=== PATIENT | male | born 1980 | race African-American/Black ===

== ENCOUNTER 2017-10-09 12:52 | Emergency (ER) | payer MEDICAID ==
[~2017-10-09] VITALS: Ht 188 cm; Wt 86.2 kg
[2017-10-09] MEDS ORDERED: ALBUTEROL SULF8.5 GM INH (13:02)
[2017-10-09] MEDS ORDERED: Methocarbamol 750mg tab ORAL ONE (14:00)
[2017-10-09] MEDS ORDERED: Ketorolac 60mg Inj IM ONE (14:00)
[2017-10-09] MEDS ORDERED: IBUPROFEN600 MG ORAL (14:03)
[2017-10-09] MEDS ORDERED: ROBAXIN-750750 MG PO (14:03)
[2017-10-09 14:25] VITALS: BP 125/75
--- NOTE | 2017-10-09 17:00 | Diagnostic Imaging Report ---
Indication: Chest pain Technique: One view of the chest Comparison: none Findings: Lungs and pleural spaces are clear. Heart size is upper limits normal. Impression: No acute process
--- NOTE | 2017-10-09 21:43 | Emergency Room Report ---
History of Present Illness General Chief Complaint: Chest Pain Source: Patient Present Illness HPI The patient is a 37-year-old male presenting for chest pain which began earlier today. He describes this as an 8/10 sharp sensation to the left chest and left mid back. He denies any injury to the area. Pain does not radiate. Worse with movement and touch. He denies any medical history. He denies history of smoking or family history of heart disease. He denies any other symptoms including N, V, SOB, abd pain, cough, numbness Allergies: Coded Allergies: No Known Allergies (Unverified , 10/09/17) Patient History Past Medical History: see triage record Pertinent Family History: none Reviewed Nursing Documentation: PMH: Agreed, PSxH: Agreed Nursing Documentation-PMH Hx Asthma: Yes Review of Systems All Other Systems: negative except mentioned in HPI Physical Exam Vital Signs Date Time Temp Pulse Resp B/P (MAP) Pulse Ox O2 Delivery O2 Flow Rate FiO2 10/09/17 12:58 98.4 83 16 125/81 97 Room Air 10/09/17 13:19 98 Sp02 EP Interpretation: reviewed, normal General Appearance: no apparent distress, alert, GCS 15, non-toxic Head: normocephalic, atraumatic Eyes: bilateral eye normal inspection, bilateral eye PERRL ENT: hearing grossly normal, normal pharynx, no angioedema, normal voice Neck: full range of motion, supple/symm/no masses Respiratory: lungs clear, normal breath sounds, no wheezing, speaking full sentences, other - TTP over the L chest and L latissimus, chest symmetrical Cardiovascular #1: regular rate, rhythm, no edema Gastrointestinal: normal bowel sounds, non tender, soft, non-distended, no guarding, no rebound Musculoskeletal: normal inspection, gait/station normal, normal range of motion Neurologic: alert, oriented x3, responsive, motor strength/tone normal, sensory intact, speech normal Psychiatric: judgement/insight normal, memory normal, mood/affect normal, no suicidal/homicidal ideation Skin: normal color, no rash, warm/dry, well hydrated Medical Decision Making PA Attestation Dr. Ruelas is my supervising physician. Patient management was discussed with my supervising physician Diagnostic Impression: Primary Impression: Chest pain Qualified Codes: R07.9 - Chest pain, unspecified ER Course The patient is a 37-year-old male presenting for chest pain which began earlier today. Differential diagnosis include but not limited to ACS, PE,muscle strain, pneumonia, gastritis Physical exam: Vitals are within normal limits. RRR. no mrg. Lungs clear to auscultation bilaterally There is tenderness to palpation over the left lateral chest and accompanying left back. No deformity. No respiratory distress Skin is warm and dry Chest x-ray and EKG both unremarkable The patient is given IM Toradol and Robaxin and is feeling better. He will be discharged home with the ER precautions EKG Diagnostic Results EP Interpretation: NSR. No acute findings Rate: normal - 61 Rhythm: NSR ST Segments: no acute changes ASA given to the pt in ED: No PA Scribe Text EKG was reviewed and read with my supervising physician. No acute ST segment changes are seen. Normal rate and rhythm. No acute changes. Chest X-Ray Diagnostic Results Chest X-Ray Diagnostic Results : Chest X-Ray Ordered: Yes # of Views/Limited/Complete: 1 View Indication: Chest Pain EP Interpretation: Yes PA Xray: Interpretation reviewed, by supervising MD, and agrees with findings. Interpretation: no consolidation, no effusion, no pneumothorax, no acute cardiopulmonary disease Impression: No acute disease Electronically Signed by: Evelio Colvin PA-C Last Vital Signs Date Time Temp Pulse Resp B/P (MAP) Pulse Ox O2 Delivery O2 Flow Rate FiO2 10/09/17 14:31 97.4 10/09/17 14:25 60 16 125/75 100 Room Air 10/09/17 13:19 98 Status: improved Disposition: HOME, SELF-CARE Condition: Improved Scripts Methocarbamol* (ROBAXIN-750*) 750 Mg Tablet 750 MG PO TID, #21 TAB 0 Refills Prov: TERCRISTALANEVELIO P.A. 10/09/17 Ibuprofen* (MOTRIN*) 600 Mg Tablet 600 MG ORAL Q8H Y for For Pain, #30 TAB 0 Refills Prov: TERCRISTALANEVELIO P.A. 10/09/17 Patient Instructions: Nonspecific Chest Pain Additional Instructions: I discussed my findings with the patient. All questions and concerns have been answered. Treatment and medication compliance have been addressed. I advised the patient that they need to follow up with PMD in 3-5 days. Return to ED if symptoms worsen, new symptoms arise, or if needed for any reason. Patient verbalized understanding of discharge instructions. EVELIO COLVIN Oct 09, 2017 21:43
--- NOTE | 2017-10-12 11:01 | Cardiology Report ---
APPROVED REPORT EKG Measurement Heart [id number] Normal sinus rhythm Moderate voltage criteria for LVH, may be normal variant Borderline ECG
== END 2017-10-09 14:25 | disposition home or self-care (01) ==
LOC: EMR 13:23
DX: R07.9 Chest pain, unspecified (principal); J45.909 Unspecified asthma, uncomplicated
CPT/HCPCS: 71010; 93005; 96372; 99284

== ENCOUNTER 2019-01-29 00:58 | Emergency (ER) | payer SELFPAY ==
[~2019-01-29] VITALS: Ht 188 cm; Wt 81.6 kg
[~2019-01-29 00:58] MED LIST: ALBUTEROL SULF8.5 GM INH; IBUPROFEN600 MG ORAL; ROBAXIN-750750 MG PO
[2019-01-29] MEDS ORDERED: NKM (01:12)
[2019-01-29 01:55] VITALS: BP 140/73
--- NOTE | 2019-01-29 01:55 | NUR ---
ED Nurse Note: pt walked in c/o headache x 5 hours. pt is complaining of 8/10 pain. pt stated he vomited earlier yesterday. ermd on bedside. pt able to give urine and blood drawn and was sent to lab. will continue to monitor.
[2019-01-29] MEDS ORDERED: Ketorolac 30mg Inj IV ONE (02:00)
[2019-01-29 02:25] LABS: BASOPHILS % (AUTO) 1.8 % (0.0-2.0); EOSINOPHILS % (AUTO) 2.6 % (0.0-3.0); HEMATOCRIT 43.5 % (42.0-52.0); HEMOGLOBIN 14.4 G/DL (14.2-18.0); LYMPHOCYTES % (AUTO) 31.7 % (20.0-45.0); MEAN CORPUSCULAR VOLUME 87 FL (80-99); MONOCYTES % (AUTO) 13.5 % (1.0-10.0); NEUTROPHILS % (AUTO) 50.5 % (45.0-75.0); PLATELET COUNT 364 K/UL (150-450); WHITE BLOOD COUNT 7.3 K/UL (4.8-10.8)
[2019-01-29 02:25] LABS: APPEARANCE,URINE CLEAR; BILIRUBIN, URINE NEGATIVE (NEGATIVE); COLOR,URINE PALE YELLOW; GLUCOSE, URINE (UA) NEGATIVE (NEGATIVE); KETONES,URINE NEGATIVE (NEGATIVE); LEUKOCYTE ESTERASE ,URINE NEGATIVE (NEGATIVE); NITRITE,URINE NEGATIVE (NEGATIVE); PH,URINE 6 (4.5-8.0); PROTEIN,URINE NEGATIVE (NEGATIVE); UROBILINOGEN,URINE NORMAL MG/DL (0.0-1.0)
[2019-01-29 02:35] LABS: ANION GAP 9 mmol/L (5-15); BLOOD UREA NITROGEN 23 mg/dL (7-18); CALCIUM 9.8 MG/DL (8.5-10.1); CARBON DIOXIDE 28 MMOL/L (21-32); CHLORIDE 104 MMOL/L (98-107); CREATININE 1.1 MG/DL (0.55-1.30); POTASSIUM 3.8 MMOL/L (3.5-5.1); SODIUM 141 MMOL/L (136-145)
[2019-01-29 02:40] LABS: ALANINE AMINOTRANSFERASE 53 U/L (12-78); ALBUMIN 4.2 G/DL (3.4-5.0); ALBUMIN/GLOBULIN RATIO 1.1 (1.0-2.7); ALKALINE PHOSPHATASE 61 U/L (46-116); ASPARTATE AMINO TRANSFERASE 28 U/L (15-37); BILIRUBIN,TOTAL 0.4 MG/DL (0.2-1.0)
[2019-01-29] MEDS ORDERED: IBUPROFEN600 MG ORAL (03:32)
--- NOTE | 2019-01-29 03:32 | Emergency Room Report ---
History of Present Illness General Chief Complaint: Headache Source: Patient Present Illness HPI Is a 38-year-old male with no past medical history. He presents with chief complaint of nausea vomiting and diarrhea for last 4 days. Also felt weak and has headache. Vomiting is nonbloody nonbilious. Diarrhea is watery. No sick contact. Worse with eating or drinking. Allergies: Coded Allergies: No Known Allergies (Unverified , 10/09/17) Patient History Past Medical History: see triage record, old chart reviewed Past Surgical History: none Pertinent Family History: none Social History: Denies: smoking Immunizations: other Reviewed Nursing Documentation: PMH: Agreed; PSxH: Agreed Nursing Documentation-PMH Past Medical History: No Stated History Hx Asthma: Yes Review of Systems Eye: Denies: eye pain, blurred vision ENT: Denies: ear pain, nose congestion, throat swelling Respiratory: Denies: cough, shortness of breath Cardiovascular: Denies: chest pain, palpitations Gastrointestinal: Reports: abdominal pain, diarrhea, nausea, vomiting Musculoskeletal: Denies: back pain, joint pain Skin: Denies: rash Neurological: Denies: headache, numbness Endocrine: Denies: increased thirst, increased urine Hematologic/Lymphatic: Denies: easy bruising All Other Systems: negative except mentioned in HPI Physical Exam Vital Signs Date Time Temp Pulse Resp B/P (MAP) Pulse Ox O2 Delivery O2 Flow Rate FiO2 01/29/19 01:08 98.4 76 16 140/73 99 Room Air vitals normal Sp02 EP Interpretation: reviewed, normal General Appearance: well appearing, no apparent distress, alert Head: normocephalic, atraumatic Eyes: bilateral eye PERRL, bilateral eye EOMI ENT: hearing grossly normal, normal pharynx Neck: full range of motion, supple, no meningismus Respiratory: chest non-tender, lungs clear, normal breath sounds Cardiovascular #1: regular rate, rhythm, no murmur Gastrointestinal: non tender, no mass, no organomegaly, no bruit, non-distended , abnormal bowel sounds - Hyperactive Musculoskeletal: back normal, gait/station normal, normal range of motion Neurologic: alert, oriented x3 Psychiatric: mood/affect normal Skin: warm/dry Medical Decision Making Diagnostic Impression: Primary Impression: Headache Qualified Codes: G44.209 - Tension-type headache, unspecified, not intractable Additional Impression: Diarrhea Qualified Codes: R19.7 - Diarrhea, unspecified ER Course Patient with diarrhea and vomiting. No evidence of acute abdomen. He felt better now. We'll discharge home. Last Vital Signs Date Time Temp Pulse Resp B/P (MAP) Pulse Ox O2 Delivery O2 Flow Rate FiO2 01/29/19 02:50 98.4 01/29/19 01:55 82 16 140/73 99 Room Air Status: improved Disposition: HOME, SELF-CARE Condition: Stable Scripts Ibuprofen* (MOTRIN*) 600 Mg Tablet 600 MG ORAL THREE TIMES A DAY, #30 TAB 0 Refills Prov: Rahul Carballo MD 01/29/19 Referrals: NOT CHOSEN IPA/,REFERRING (PCP) Additional Instructions: Increase fluids. Follow-up with your doctor in 7 days. Return if worse. Rahul Carballo MD Jan 29, 2019 03:32
[2019-01-29 03:35] VITALS: BP 140/73
--- NOTE | 2019-01-29 03:35 | NUR ---
ER DISCHARGE NOTE: Patient is cleared to be discharged per ERMD, pt is aox4, on room air, with stable vital signs. pt was given dc and prescription instructions, pt was able to verbalize understanding, pt id band and iv site removed without complications. pt is able to ambulate with steady gait. pt took all belongings.
== END 2019-01-29 03:35 | disposition home or self-care (01) ==
LOC: EMR 01:59
DX: G44.209 Tension-type headache, unspecified, not intractable (principal); R19.7 Diarrhea, unspecified; R11.2 Nausea with vomiting, unspecified
CPT/HCPCS: 36415; 80053; 81003; 83690; 85025; 96361; 96374; 96375; 99284; J1885; J2405

== ENCOUNTER 2019-02-27 22:32 | Emergency (ER) | payer MEDICAID ==
[~2019-02-27] VITALS: Ht 188 cm; Wt 74.8 kg
[~2019-02-27 22:32] MED LIST changes: +NKM
[2019-02-27] MEDS ORDERED: NKM (22:42)
[2019-02-27 22:44] VITALS: BP 135/83
--- NOTE | 2019-02-27 22:56 | NUR ---
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
[2019-02-27] MEDS ORDERED: Ketorolac 60mg Inj IM ONE (23:00)
[2019-02-27] MEDS ORDERED: IBUPROFEN600 MG ORAL (23:09)
--- NOTE | 2019-02-27 23:10 | Emergency Room Report ---
History of Present Illness General Chief Complaint: Headache Source: Patient Present Illness HPI Is a 38-year-old male with no past medical history. He presents with chief point of headache. He said he gets this headache because he has to travel frequently and have to fly a lot. Pain is throbbing in nature. Has not anything for it. No nausea no vomiting but no fever chills but denies any other complaint. Was here beginning of the month for the same thing. Pain is 7 out of 10. No focal deficit. No fever. Allergies: Coded Allergies: No Known Allergies (Unverified , 10/09/17) Patient History Past Medical History: see triage record, old chart reviewed Past Surgical History: none Pertinent Family History: none Social History: Denies: smoking Immunizations: other Reviewed Nursing Documentation: PMH: Agreed; PSxH: Agreed Nursing Documentation-PMH Past Medical History: No History, Except For Hx Asthma: Yes Review of Systems Eye: Denies: eye pain, blurred vision ENT: Denies: ear pain, nose congestion, throat swelling Respiratory: Denies: cough, shortness of breath Cardiovascular: Denies: chest pain, palpitations Gastrointestinal: Denies: abdominal pain, diarrhea, nausea, vomiting Musculoskeletal: Denies: back pain, joint pain Skin: Denies: rash Neurological: Reports: headache; Denies: numbness Endocrine: Denies: increased thirst, increased urine Hematologic/Lymphatic: Denies: easy bruising All Other Systems: negative except mentioned in HPI Physical Exam Vital Signs Date Time Temp Pulse Resp B/P (MAP) Pulse Ox O2 Delivery O2 Flow Rate FiO2 02/27/19 22:35 98.6 74 16 139/85 96 Room Air vitals normal Sp02 EP Interpretation: reviewed, normal General Appearance: well appearing, no apparent distress, alert Head: normocephalic, atraumatic Eyes: bilateral eye PERRL, bilateral eye EOMI ENT: hearing grossly normal, normal pharynx Neck: full range of motion, supple, no meningismus Respiratory: chest non-tender, lungs clear, normal breath sounds Cardiovascular #1: regular rate, rhythm, no murmur Gastrointestinal: normal bowel sounds, non tender, no mass, no organomegaly, no bruit, non-distended Musculoskeletal: back normal, gait/station normal, normal range of motion Psychiatric: mood/affect normal Skin: warm/dry Medical Decision Making Diagnostic Impression: Primary Impression: Headache Qualified Codes: G44.209 - Tension-type headache, unspecified, not intractable ER Course Patient with headache. No evidence of any TIA or CVA. No evidence of any bleed or neoplastic process. We'll discharge home. Last Vital Signs Date Time Temp Pulse Resp B/P (MAP) Pulse Ox O2 Delivery O2 Flow Rate FiO2 02/27/19 22:44 98.4 75 16 135/83 96 Room Air Status: improved Disposition: HOME, SELF-CARE Condition: Stable Scripts Ibuprofen* (MOTRIN*) 600 Mg Tablet 600 MG ORAL THREE TIMES A DAY, #30 TAB 0 Refills Prov: Rahul Carballo MD 02/27/19 Patient Instructions: Tension Headache Additional Instructions: Follow-up with your doctor in 7 days. Return if worse. Rahul Carballo MD February 27, 2019 23:10
[2019-02-27 23:14] VITALS: BP 135/83
--- NOTE | 2019-02-27 23:14 | NUR ---
ER DISCHARGE NOTE: Patient is cleared to be discharged per ERMD, pt is aox4, on room air, with stable vital signs. pt was given dc and prescription instructions, pt was able to verbalize understanding, pt id band removed. pt is able to ambulate with steady gait. pt took all belongings.
== END 2019-02-27 23:15 | disposition home or self-care (01) ==
LOC: EMR 22:43
DX: R51 Headache (principal); J45.909 Unspecified asthma, uncomplicated
CPT/HCPCS: 96372; 99283

== ENCOUNTER 2019-07-30 19:18 | Emergency (ER) | payer MEDICAID ==
[~2019-07-30] VITALS: Ht 185.4 cm; Wt 77.1 kg
--- NOTE | 2019-07-30 19:31 | NUR ---
ED Nurse Note: Pt ambulated to ED from home c/o cough with sputum x3days, VSS, no wheezing, previous hx of childhood asthma.
[2019-07-30 19:32] VITALS: BP 133/84
[2019-07-30] MEDS: Ipratropium 0.02% Inh Soln 2.5ml UD HHN SCH ×3 (19:55→20:23)
[2019-07-30] MEDS: Albuterol ud Inhalation HHN SCH ×3 (19:55→20:22)
[2019-07-30] MEDS ORDERED: PROMETHAZINE-D118 ML ORAL (21:02)
[2019-07-30] MEDS ORDERED: PREDNISONE20 MG ORAL (21:02)
[2019-07-30] MEDS ORDERED: ALBUTEROL SULF8.5 GM INH (21:02)
[2019-07-30 21:10] VITALS: BP 133/84
--- NOTE | 2019-07-31 10:42 | Diagnostic Imaging Report ---
Indication: Cough Comparison: 10/09/2017 A single view chest radiograph was obtained. Findings: Cardiomediastinal appearance is within normal limits for age. The lungs are clear. Pulmonary vascularity is appropriate. The diaphragmatic contour is smooth and costophrenic angles are sharp. No pleural effusions are identified. The bones are unremarkable. Impression: No acute findings
--- NOTE | 2019-07-31 15:00 | Emergency Room Report ---
History of Present Illness General Chief Complaint: Upper Respiratory Illness Source: Patient Present Illness HPI 38-year-old male presents ED for evaluation. Complaining of cough and chest tightness for the last 3 days. Cough is productive with yellowish phlegm. Denies fevers or chills. Denies chest pain. States that he did have asthma as a child. Admits to smoking marijuana. Denies cigarettes. Denies sick contacts or recent travel. No other aggravating relieving factors. Denies any other associated symptoms Allergies: Coded Allergies: No Known Allergies (Unverified , 10/09/17) Patient History Past Medical History: other - bronchitis Past Surgical History: none Pertinent Family History: none Social History: Denies: smoking, alcohol use, drug use Immunizations: UTD Reviewed Nursing Documentation: PMH: Agreed; PSxH: Agreed Nursing Documentation-PMH Past Medical History: No History, Except For Hx Asthma: Yes - BRONCHITIS Review of Systems All Other Systems: negative except mentioned in HPI Physical Exam Vital Signs Date Time Temp Pulse Resp B/P (MAP) Pulse Ox O2 Delivery O2 Flow Rate FiO2 07/30/19 19:23 97.7 81 18 133/84 (100) 97 Room Air 07/30/19 19:45 21 Sp02 EP Interpretation: reviewed, normal General Appearance: no apparent distress, alert, GCS 15, non-toxic Head: normocephalic, atraumatic Eyes: bilateral eye normal inspection, bilateral eye PERRL ENT: hearing grossly normal, normal pharynx, no angioedema, normal voice Neck: full range of motion, supple/symm/no masses Respiratory: chest non-tender, speaking full sentences, wheezing Cardiovascular #1: regular rate, rhythm, no edema Cardiovascular #2: 2+ carotid (R), 2+ carotid (L), 2+ radial (R), 2+ radial (L) , 2+ dorsalis pedis (R), 2+ dorsalis pedis (L) Gastrointestinal: normal bowel sounds, non tender, soft, non-distended, no guarding, no rebound Rectal: deferred Genitourinary: normal inspection, no CVA tenderness Musculoskeletal: back normal, gait/station normal, normal range of motion, non- tender Neurologic: alert, oriented x3, responsive, motor strength/tone normal, sensory intact, speech normal Psychiatric: judgement/insight normal, memory normal, mood/affect normal, no suicidal/homicidal ideation Reflexes: 3+ bicep (R), 3+ bicep (L), 3+ tricep (R), 3+ tricep (L), 3+ knee (R) , 3+ knee (L) Lymphatic: no adenopathy Medical Decision Making Diagnostic Impression: Primary Impression: Bronchitis ER Course Hospital Course 38-year-old male presents to ED complaining of cough Differential diagnoses include: URI, bronchitis, asthma/COPD, pneumonia Clinical course Patient placed on stretcher. After initial history and physical I ordered cxr, prednisone and nebulizer treatment. CXR -no focal consolidation or other acute process Upon reassessment patient states cough and symptoms have improved. discussed findings with patient. Findings consistent with bronchitis. safe for discharge for close outpatient follow-up. Does not have a PMD. I will provide referrals Diagnosis - bronchitis Stable and discharged home with prescriptions for Rx prednisone, albuterol, promethazine/DM. Instructed to followup with PMD. Return to ED if symptoms recur or worsen Chest X-Ray Diagnostic Results Chest X-Ray Diagnostic Results : Chest X-Ray Ordered: Yes # of Views/Limited/Complete: 1 View Indication: Other - cough EP Interpretation: Yes Interpretation: no consolidation, no effusion, no pneumothorax, no acute cardiopulmonary disease Impression: No acute disease Electronically Signed by: Electronically signed by Raad Noonan MD Last Vital Signs Date Time Temp Pulse Resp B/P (MAP) Pulse Ox O2 Delivery O2 Flow Rate FiO2 07/30/19 21:10 97.7 81 20 133/84 100 Room Air 21 Status: improved Disposition: HOME, SELF-CARE Condition: Stable Scripts D-Methorphan Hb/Prometh Hcl* (PROMETHAZINE-DM SYRUP*) 118 Ml Syrup 5 ML ORAL Q6H PRN for For Cough, #118 ML 0 Refills Prov: Raad Noonan MD 07/30/19 Prednisone* (PREDNISONE*) 20 Mg Tablet 40 MG ORAL DAILY, #10 TAB Prov: Raad Noonan MD 07/30/19 Albuterol Sulfate* (ALBUTEROL SULFATE MDI*) 8.5 Gm Hfa.aer.ad 2 PUFF INH Q6H, #1 EA 0 Refills Prov: Raad Noonan MD 07/30/19 Referrals: NOT CHOSEN IPA/,REFERRING (PCP) [facility] Patient Instructions: Acute Bronchitis, [id number] Raad Noonan MD Jul 31, 2019 15:00
== END 2019-07-30 21:10 | disposition home or self-care (01) ==
LOC: EMR 19:47
DX: J40 Bronchitis, not specified as acute or chronic (principal); R07.9 Chest pain, unspecified; F12.10 Cannabis abuse, uncomplicated
CPT/HCPCS: 71045; 94640; 94664; J7512; Z7502; 99284